=== PATIENT | male | born 1935 | race Caucasian/White ===

== ENCOUNTER 2020-08-22 23:17 | Emergency (ER) | payer MEDICARE, OTHER ==
[2020-08-22 23:24] VITALS: BP 163/103; PULSE 107
[2020-08-22] MEDS ORDERED: Sodium Chloride 0.9% 1,000 ML IV STA (23:34)
--- NOTE | 2020-08-23 00:35 | EDM.PDOC ---
ED HPI GENERAL MEDICAL PROBLEM - General Chief Complaint: Trauma Stated Complaint: [facility] Time Seen by Provider: 08/22/20 23:32 Source of Information: Reports: Patient History Limitations: Reports: No Limitations - History of Present Illness INITIAL COMMENTS - FREE TEXT/NARRATIVE: Mr. Acevedo is a very pleasant 85-year-old gentleman who is now brought to the ED by EMS after his neighbor found him on the bathroom floor around 23:00 tonight. The patient estimates that he fell around 17:00, stating that it was simply due to weakness. The patient has a skin tear to his left hand and right forearm, but denies having any pain. The patient denies having history of coronary artery disease, but states that he had a heart valve replaced in 2018 or 2019. He believes it is either porcine or bovine, but he does not recall which valve it was. He is on aspirin and Plavix, but no other anticoagulants. Here in the ED, the patient's initial BP is found to be elevated at 163/103, with tachycardia of 107 bpm. He is afebrile, saturating 95% on room air. The patient states that he has fallen about 4 times over the past 3 months, "ever since I got my hips and knees done". Otherwise, the patient denies having a recent fever, chills, sore throat, ear pain, nasal or sinus congestion, cough, dyspnea, chest pain, palpitations, nausea, vomiting, constipation, diarrhea, abdominal pain, urinary symptoms, recent weight gain or weight loss, recent bloody bowel movements or black bowel movements, recent joint aches, headaches, or rashes. The patient's PCP is Dr. Doe Arcos. His Footwear Sales Representative is Dr. Catarino Mansfield. His Orthopedic Surgeon is Dr. Anthony Lal. - Related Data Allergies Allergy/AdvReac Type Severity Reaction Status Date / Time Sulfa (Sulfonamide Allergy Severe Hives Verified 08/22/20 23:24 Antibiotics) Home Meds: Home Meds allopurinoL [Zyloprim] 1 tab PO QPM 06/14/14 [History] Ascorbic Acid [Vitamin C] 0 mg PO DAILY 06/17/14 [History] Aspirin [Halfprin] 81 mg PO DAILY 06/17/14 [History] Multivitamin [Multi-Vitamin Daily] 1 tab PO DAILY 06/17/14 [History] Calc/D3/Mag/Zn/Wen/G[place]ar/[place] [Calcium 600 MG Plus Vit D] 1 each PO DAILY 08/22/20 [History] Cholecalciferol (Vitamin D3) [Vitamin D3] 5,000 unit PO DAILY 08/22/20 [History] Clopidogrel [Plavix] 75 mg PO DAILY 08/22/20 [History] Doxazosin [Doxazosin Mesylate] 2 mg PO DAILY 08/22/20 [History] Furosemide [Lasix] 20 mg PO DAILY 08/22/20 [History] Metoprolol Tartrate 25 mg PO DAILY 08/22/20 [History] Vit A/Vit C/Vit E/Zinc/Copper [Preservision Areds Softgel] 1 each PO DAILY 08/22/20 [History] amLODIPine [Norvasc] 2.5 mg PO BEDTIME 08/22/20 [History] atorvaSTATin Calcium [Lipitor] 20 mg PO DAILY 08/22/20 [History] Past Medical History HEENT History: Reports: Impaired Vision Cardiovascular History: Reports: Heart Failure, High Cholesterol, Hypertension Gastrointestinal History: Reports: GERD, Hemorrhoids Musculoskeletal History: Reports: Osteoarthritis - Past Surgical History HEENT Surgical History: Reports: Adenoidectomy, Tonsillectomy Cardiovascular Surgical History: Reports: Valve Replacement (? which one, papa herrera is tissue, in 2018 or 2019) GI Surgical History: Reports: Colonoscopy (x 3 or 4), EGD Neurological Surgical History: Reports: C-Spine Musculoskeletal Surgical History: Reports: Hip Replacement (bilateral), Knee Replacement (bilateral) Social & Family History - Tobacco Use Tobacco Use Status *Q: Never Tobacco User - Caffeine Use Caffeine Use: Reports: Coffee - Alcohol Use Alcohol Use History: Yes Alcohol Use Frequency: Socially - Recreational Drug Use Recreational Drug Use: No - Living Situation & Occupation Living situation: Reports: , Alone Occupation: Retired Review of Systems - Review of Systems Review Of Systems: Comprehensive ROS is negative, except as noted in HPI. ED EXAM, GENERAL - Physical Exam Exam: See Below Exam Limited By: No Limitations General Appearance: Alert, WD/WN, No Apparent Distress Eye Exam: Bilateral Eye: EOMI, Normal Inspection Ears: Normal External Exam, Hearing Grossly Normal Nose: Normal Inspection Throat/Mouth: Normal Inspection, Normal Lips, Normal Voice, No Airway Compromise Head: Atraumatic, Normocephalic Neck: Normal Inspection, Full Range of Motion Respiratory/Chest: No Respiratory Distress, Lungs Clear, Normal Breath Sounds, No Accessory Muscle Use Cardiovascular: Normal Peripheral Pulses, Regular Rate, Rhythm, No Gallop, No JVD, No Murmur, No Rub Peripheral Pulses: 3+: Radial (L), Radial (R) GI/Abdominal: Normal Bowel Sounds, Soft, Non-Tender, No Organomegaly, No Distention, No Abnormal Bruit, No Mass Back Exam: Normal Inspection, Full Range of Motion, NT Extremities: Normal Range of Motion, Non-Tender, Normal Capillary Refill, Other (3+ pretibial pitting edema with hyperpigmentation consistent with chronic venous stasis changes, bilaterally. Approximately 4 cm x 2 cm bloody skin teat over the ulnar aspect of the patient's left hypothenar eminence, and an approximately quarter-sized skin tear on the patient's right forearm.) Neurological: Alert, Oriented, CN II-XII Intact, No Motor/Sensory Deficits, Confused (not the best historian, but the patient is oriented) Psychiatric: Normal Affect Skin Exam: Warm, Dry, Intact, Normal Color, No Rash #1 Interpretation EKG Date: 08/22/20 Time: 23:39 Rhythm: Other (Sinus tachycardia with 1:1 ventricular bigeminy) Rate (Beats/Min): 103 Mckenzie: Normal P-Wave: Present QRS: Normal ST-T: Normal QT: Prolonged (QTc 567 ms) Comparison: NA - No Prior EKG Course - Vital Signs Last Recorded V/S: Last Vital Signs Temp 37.3 C 08/22/20 23:19 Pulse 107 H 08/22/20 23:19 Resp 18 08/22/20 23:19 BP 163/103 H 08/22/20 23:19 Pulse Ox 95 08/22/20 23:19 - Orders/Labs/Meds Orders: Active Orders 24 hr Category Date Time Status EKG Documentation Completion [RC] ASDIRECTED Care 08/22/20 23:33 Active Chest 1V Frontal [CR] Stat Exams 08/23/20 00:32 Taken Head wo Cont [CT] Stat Exams 08/23/20 00:33 Taken Amiodarone In Dextrose,Iso-Osm [Nexterone in Dextrose Med 08/23/20 02:30 Activ e 360 MG/200 ML] 360 mg in 200 ml IV ASDIRECTED Heparin Sodium/D5W [Heparin 25,000 Units in D5W 500 ML] Med 08/23/20 02:15 Active 25,000 units in 500 ml IV TITRATE Sodium Chloride 0.9% [Normal Saline] 1,000 ml Med 08/22/20 23:34 Active IV NOW EKG 12 Lead [EK] Stat Ther 08/22/20 23:32 Ordered Medication Orders Sodium Chloride (Normal Saline) 1,000 mls @ 100 mls/hr IV NOW STA Stop: 08/23/20 09:33 Last Admin: 08/22/20 23:43 Dose: 100 mls/hr Documented by: KATI Heparin Sodium/Dextrose (Heparin 25,000 Units In D5w 500 Ml) 25,000 units in 500 mls @ 20 mls/hr IV TITRATE SANTI; Protocol Last Admin: 08/23/20 02:19 Dose: 1,000 units/hr, 20 mls/hr Documented by: KATI Cosigned by: DELORES Amiodarone HCl/Dextrose (Nexterone In Dextrose 360 Mg/200 Ml) 360 mg in 200 mls @ 33.333 mls/hr IV ASDIRECTED SANTI; Protocol Last Admin: 08/23/20 02:54 Dose: 33.333 mls/hr Documented by: KATI Labs: Laboratory Tests 08/22/20 08/22/20 08/22/20 Range/Units 23:29 23:29 23:29 WBC 10.23 H (4.23-9.07) K/mm3 RBC 4.34 L (4.63-6.08) M/mm3 Hgb 12.8 L (13.7-17.5) gm/dl Hct 39.9 L (40.1-51.0) % MCV 91.9 D (79.0-92.2) fl MCH 29.5 (25.7-32.2) pg MCHC 32.1 L (32.2-35.5) g/dl RDW Std Deviation 48.8 H (35.1-43.9) fL Plt Count 163 (163-337) K/mm3 MPV 10.2 (9.4-12.3) fl Neut % (Auto) 84.2 H (34.0-67.9) % Lymph % (Auto) 7.0 L (21.8-53.1) % [place] % (Auto) 8.3 (5.3-12.2) % Eos % (Auto) 0 L (0.8-7.0) Baso % (Auto) 0.2 (0.1-1.2) % Neut # (Auto) 8.61 H (1.78-5.38) K/mm3 Lymph # (Auto) 0.72 L (1.32-3.57) K/mm3 [place] # (Auto) 0.85 H (0.30-0.82) K/mm3 Eos # (Auto) 0.00 L (0.04-0.54) K/mm3 Baso # (Auto) 0.02 (0.01-0.08) K/mm3 Manual Slide Review Abnormal smear Sodium 141 (136-145) mEq/L Potassium 3.9 (3.5-5.1) mEq/L Chloride 104 (98-107) mEq/L Carbon Dioxide 22 (21-32) mEq/L Anion Gap 18.9 H (5-15) BUN 10 (7-18) mg/dL Creatinine 0.8 (0.7-1.3) mg/dL Est Cr Clr Drug Dosing 79.07 mL/min Estimated GFR (MDRD) > 60 (>60) mL/min BUN/Creatinine Ratio 12.5 L (14-18) Glucose 145 H (83-115) mg/dL Lactic Acid 1.6 (0.4-2.0) mmol/L Calcium 8.6 (8.5-10.1) mg/dL Magnesium (1.8-2.4) mg/dl Total Bilirubin 0.7 (0.2-1.0) mg/dL AST 28 (15-37) U/L ALT 24 (16-63) U/L Alkaline Phosphatase 105 (46-116) U/L Creatine Kinase (39-308) U/L Troponin I 1.328 H* (0.00-0.056) ng/mL Total Protein 6.7 (6.4-8.2) g/dl Albumin 3.6 (3.4-5.0) g/dl Globulin 3.1 gm/dL Albumin/Globulin Ratio 1.2 (1-2) SARS-CoV-2 RNA (SONIYA) (NEGATIVE) 08/22/20 08/22/20 08/23/20 Range/Units 23:29 23:29 00:42 WBC (4.23-9.07) K/mm3 RBC (4.63-6.08) M/mm3 Hgb (13.7-17.5) gm/dl Hct (40.1-51.0) % MCV (79.0-92.2) fl MCH (25.7-32.2) pg MCHC (32.2-35.5) g/dl RDW Std Deviation (35.1-43.9) fL Plt Count (163-337) K/mm3 MPV (9.4-12.3) fl Neut % (Auto) (34.0-67.9) % Lymph % (Auto) (21.8-53.1) % [place] % (Auto) (5.3-12.2) % Eos % (Auto) (0.8-7.0) Baso % (Auto) (0.1-1.2) % Neut # (Auto) (1.78-5.38) K/mm3 Lymph # (Auto) (1.32-3.57) K/mm3 [place] # (Auto) (0.30-0.82) K/mm3 Eos # (Auto) (0.04-0.54) K/mm3 Baso # (Auto) (0.01-0.08) K/mm3 Manual Slide Review Sodium (136-145) mEq/L Potassium (3.5-5.1) mEq/L Chloride (98-107) mEq/L Carbon Dioxide (21-32) mEq/L Anion Gap (5-15) BUN (7-18) mg/dL Creatinine (0.7-1.3) mg/dL Est Cr Clr Drug Dosing mL/min Estimated GFR (MDRD) (>60) mL/min BUN/Creatinine Ratio (14-18) Glucose (83-115) mg/dL Lactic Acid (0.4-2.0) mmol/L Calcium (8.5-10.1) mg/dL Magnesium 1.8 (1.8-2.4) mg/dl Total Bilirubin (0.2-1.0) mg/dL AST (15-37) U/L ALT (16-63) U/L Alkaline Phosphatase (46-116) U/L Creatine Kinase 311 H (39-308) U/L Troponin I (0.00-0.056) ng/mL Total Protein (6.4-8.2) g/dl Albumin (3.4-5.0) g/dl Globulin gm/dL Albumin/Globulin Ratio (1-2) SARS-CoV-2 RNA (SONIYA) Negative (NEGATIVE) Meds: Medications Generic Name Dose Route Start Last Admin Trade Name Saad PRN Reason Stop Dose Admin Sodium Chloride 1,000 mls @ 100 mls/hr 08/22/20 23:34 08/22/20 23:43 Normal Saline IV 08/23/20 09:33 100 mls/hr NOW STA Administration Heparin Sodium/Dextrose 25,000 units in 500 mls @ 20 mls/hr 08/23/20 02:15 08/23/20 02:19 Heparin 25,000 Units In D5w 500 Ml IV 1,000 units/hr TITRATE SANTI 20 mls/hr Administration Protocol 1,000 UNITS/HR Amiodarone HCl/Dextrose 360 mg in 200 mls @ 33.333 mls/hr 08/23/20 02:30 08/23/20 02:54 Nexterone In Dextrose 360 Mg/200 Ml IV 33.333 mls/hr ASDIRECTED SANTI Administration Protocol Discontinued Medications Generic Name Dose Route Start Last Admin Trade Name Saad PRN Reason Stop Dose Admin Aspirin 324 mg 08/23/20 02:01 08/23/20 02:14 Aspirin PO 08/23/20 02:02 324 mg ONETIME STA Administration Heparin Sodium (Porcine) 4,000 units 08/23/20 02:01 08/23/20 02:16 Heparin Sodium IVPUSH 08/23/20 02:02 4,000 units .BOLUS STA Administration Amiodarone HCl/Dextrose 150 mg 100 mls @ 600 mls/hr 08/23/20 02:45 08/23/20 02:49 / Premix IV 08/23/20 02:54 600 mls/hr NOW ONE Administration - Re-Assessments/Exams Free Text/Narrative Re-Assessment/Exam: 08/23/20 00:30 As above, the patient was found on his bathroom floor around 23:00 this evening, after falling around 17:00, he states, due to generalized weakness. He states that he has fallen about 4 times over the past 3 months. He has a couple of skin tears, but no other obvious injuries, and he denies having any pain. The patient's CBC is remarkable for mild leukocytosis of 10.23, and slight anemia with a H/H of 12.8/39.9, and the remainder of his CBC being unremarkable. His CMP is remarkable for an anion gap slightly elevated at 18.9, but with a bicarbonate normal at 22, and mild hyperglycemia of 145, with the remainder of his CMP being unremarkable. His lactic acid level is within normal limits at 1.6. His troponin is elevated at 1.328. There are no prior troponin's to compare. Based on the above, I have ordered a CPK (to rule out rhabdomyolysis, as the patient was on the bathroom floor for a prolonged period of time), along with a portable chest x-ray and swab for the SARS-CoV-2 virus (as the patient will likely require transfer to [place]). I have also ordered a CT of the head, given that the patient stated that he is fallen 4 times over the past 3 months - want to be certain that there are no intracranial injuries or obvious tumors that would preclude him from my starting a heparin drip. 08/23/20 01:57 The patient's CPK is mildly elevated at 311. His swab for the SARS-CoV-2 virus returned negative. Portable chest radiograph reviewed. There appears to be cardiomegaly, however, no pulmonary vascular congestion or pleural effusion to suggest decompensated CHF. No focal infiltrate. No pneumothorax. Aortosclerosis noted. Formal read per the Radiologist pending. CT of the head without contrast is read by Patrice as: 1. No acute intracranial abnormality. 2. Non-acute findings are described above. 08/23/20 02:23 From a call earlier this evening, I am aware that [facility] does not have any beds available. Case discussed with Kimberly at [facility] at 02:23. Case then discussed with Dr. Sandoval, Hospitalist at [facility], at 02:18. She accepted the patient for transfer to their facility. The patient will be transported by ground ambulance. I have pushed the portable chest x-ray and CT/head images to [facility]. 08/23/20 02:31 Notified by Alma Delia DOMINGO that the patient just had an 8-beat run of V-tach. I have therefore ordered an amiodarone gtt. Departure - Departure Time of Disposition: 02:25 Disposition: DC/Tfer to Acute Hospital 02 Condition: Good Clinical Impression: Generalized weakness, Non-STEMI (non-ST elevated myocardial infarction), Fall at home, Skin tear of hand without complication, Skin tear of forearm without complication, Non-sustained ventricular tachycardia - Discharge Information *PRESCRIPTION DRUG MONITORING PROGRAM REVIEWED*: Not Applicable *COPY OF PRESCRIPTION DRUG MONITORING REPORT IN PATIENT REKHA: Not Applicable Referrals: Doe Arcos MD [Primary Care Provider] - Catarino Mansfield MD [Ordering Only Provider] - Anthony Lal MD [Ordering Only Provider] - Forms: ED Department Discharge Sepsis Event Note (ED) - Evaluation Sepsis Screening Result: No Definite Risk - Focused Exam Vital Signs: Vital Signs Temp Pulse Resp BP Pulse Ox 08/22/20 23:19 37.3 C 107 H 18 163/103 H 95 - My Orders Last 24 Hours: My Active Orders 08/22/20 23:32 EKG 12 Lead [EK] Stat 08/22/20 23:33 EKG Documentation Completion [RC] ASDIRECTED 08/22/20 23:34 Sodium Chloride 0.9% [Normal Saline] 1,000 ml IV NOW 08/23/20 00:32 Chest 1V Frontal [CR] Stat 08/23/20 00:33 Head wo Cont [CT] Stat 08/23/20 02:15 Heparin Sodium/D5W [Heparin 25,000 Units in D5W 500 ML] 25,000 units in 500 ml IV TITRATE 08/23/20 02:30 Amiodarone In Dextrose,Iso-Osm [Nexterone in Dextrose 360 MG/200 ML] 360 mg in 200 ml IV ASDIRECTED - Assessment/Plan Last 24 Hours: My Active Orders 08/22/20 23:32 EKG 12 Lead [EK] Stat 08/22/20 23:33 EKG Documentation Completion [RC] ASDIRECTED 08/22/20 23:34 Sodium Chloride 0.9% [Normal Saline] 1,000 ml IV NOW 08/23/20 00:32 Chest 1V Frontal [CR] Stat 08/23/20 00:33 Head wo Cont [CT] Stat 08/23/20 02:15 Heparin Sodium/D5W [Heparin 25,000 Units in D5W 500 ML] 25,000 units in 500 ml IV TITRATE 08/23/20 02:30 Amiodarone In Dextrose,Iso-Osm [Nexterone in Dextrose 360 MG/200 ML] 360 mg in 200 ml IV ASDIRECTED
[2020-08-23] MEDS ORDERED: Aspirin 81 MG Tab.Chew PO STA (02:01)
[2020-08-23] MEDS ORDERED: Heparin Sodium 5,000 Units/ML Vial IVPUSH STA (02:01)
[2020-08-23] MEDS ORDERED: Heparin Sodium/D5W 25,000 UNITS/500 ML BAG IV SCH (02:15)
[2020-08-23] MEDS ORDERED: Amiodarone In Dextrose,Iso-Osm 150 MG in Premix Bag 1 BAG IV ONE ×2 (02:45)
--- NOTE | 2020-08-23 07:47 | CR ---
Chest: 2 views of the chest were obtained. Comparison: Prior chest x-ray of 06/14/14. Heart size appears within normal limits. Tortuous thoracic aorta is seen. Lungs show no acute parenchymal change. Bony structures are grossly intact. Impression: 1. Nothing acute is seen on frontal chest x-ray. Diagnostic code #2
--- NOTE | 2020-08-23 07:55 | CT ---
Head CT Technique: Multiple axial sections through the brain were obtained. Intravenous contrast not utilized. Reconstructed coronal and sagittal images were also obtained. Comparison: No prior intracranial imaging is available. Findings: Ventricles along with basal cisterns and sulci over the convexities are moderately prominent. Atrophy is also noted within the cerebellum. Minimal areas of diminished density are noted within portions of the periventricular white matter which are compatible with small vessel ischemic demyelination change. No evidence of intracranial hemorrhage. No midline shift or mass-effect is seen. Atherosclerotic change is seen within the carotid siphon and vertebral vessels. Bone window settings were reviewed. Visualized mastoid and paranasal sinuses show nothing acute. No acute calvarial abnormality is appreciated. Impression: 1. Scattered senescent change as noted above. 2. No acute intracranial abnormality is seen. Diagnostic code #2 I agree with preliminary report from [facility], finalized on 08/23/20, 2:50 AM ACCESS SPEC
== END 2020-08-23 03:15 ==
LOC: JD.ED 23:17
DX: S61.412A Laceration without foreign body of left hand, initial encounter (principal); S51.811A Laceration without foreign body of right forearm, initial encounter; I21.4 Non-ST elevation (NSTEMI) myocardial infarction; I47.2 Ventricular tachycardia; R79.89 Other specified abnormal findings of blood chemistry; D72.829 Elevated white blood cell count, unspecified; D64.9 Anemia, unspecified; I11.0 Hypertensive heart disease with heart failure; I50.9 Heart failure, unspecified; E78.00 Pure hypercholesterolemia, unspecified; M19.90 Unspecified osteoarthritis, unspecified site; Z88.2 Allergy status to sulfonamides; Z79.82 Long term (current) use of aspirin; Z79.02 Long term (current) use of antithrombotics/antiplatelets; Z79.899 Other long term (current) drug therapy; Z20.822 Contact with and (suspected) exposure to COVID-19; W18.30XA Fall on same level, unspecified, initial encounter; Y92.002 Bathroom of unspecified non-institutional (private) residence as the place of occurrence of the external cause
CPT/HCPCS: 36415; 70450; 70450-26; 71045; 71045-26; 80053; 82550; 83605; 83735; 84484; 85025; 93005; 93010; 96365; 96368; 99285; 99285-25; A9270-GY; J0282; J1644; J7030; U0002

== ENCOUNTER 2021-10-28 14:14 | Emergency (ER) | payer MEDICARE, OTHER ==
[2021-10-28] MEDS ORDERED: Metoprolol Succinate 25 MG Tab.ER PO ONE (19:26)
[2021-10-28 20:08] VITALS: BP 168/89; PULSE 94
== END 2021-10-28 20:00 ==
LOC: SUPCPDRO 14:14 → JD.ED 14:14
DX: I49.3 Ventricular premature depolarization (principal); J06.9 Acute upper respiratory infection, unspecified; R53.1 Weakness; E78.00 Pure hypercholesterolemia, unspecified; I11.0 Hypertensive heart disease with heart failure; I50.9 Heart failure, unspecified; K21.9 Gastro-esophageal reflux disease without esophagitis; M19.90 Unspecified osteoarthritis, unspecified site; Z88.2 Allergy status to sulfonamides; Z79.82 Long term (current) use of aspirin; Z79.899 Other long term (current) drug therapy; Z87.891 Personal history of nicotine dependence; Z79.02 Long term (current) use of antithrombotics/antiplatelets
CPT/HCPCS: 36415; 70450; 71045; 80053; 81003; 84484; 85025; 85610; 85730; 93005; 99285; A9270; 93010; 99283

== ENCOUNTER 2022-08-14 16:00 | Emergency (ER) | payer MEDICARE, OTHER ==
[2022-08-14 16:19] VITALS: BP 114/96; PULSE 75
== END 2022-08-14 18:40 | disposition home or self-care (01) ==
LOC: JD.ED 16:00
DX: R79.89 Other specified abnormal findings of blood chemistry (principal); E78.00 Pure hypercholesterolemia, unspecified; I11.0 Hypertensive heart disease with heart failure; I50.9 Heart failure, unspecified; K21.9 Gastro-esophageal reflux disease without esophagitis; Z88.2 Allergy status to sulfonamides; Z79.899 Other long term (current) drug therapy; Z79.02 Long term (current) use of antithrombotics/antiplatelets; Z79.82 Long term (current) use of aspirin
CPT/HCPCS: 36415; 80053; 82977; 83690; 85025; 99284

== ENCOUNTER 2025-03-13 20:56 | Emergency (ER) | payer MEDICARE, OTHER ==
[2025-03-13 22:32] LABS: BASOPHILS ABSOLUTE AUTO 0.0 K/mm3 (0.0-0.2); BASOPHILS PERCENT AUTO 0.2 % (0.0-1.0); EOSINOPHILS ABSOLUTE AUTO 0.0 K/mm3 (0.0-0.4); EOSINOPHILS PERCENT AUTO 0.2 % (0.0-6.0); IMMATURE GRAN ABSOLUTE AUTO 0.04 K/mm3 (0.00-0.05); IMMATURE GRAN PERCENT AUTO 0.3 % (0.0-0.4); LYMPHOCYTES ABSOLUTE AUTO 1.5 K/mm3 (1.0-4.8); LYMPHOCYTES PERCENT AUTO 12.6 % (24.0-44.0); MEAN PLATELET VOLUME 10.8 fl (9.4-12.4); MONOCYTES ABSOLUTE AUTO 1.5 K/mm3 (0.0-0.8); MONOCYTES PERCENT AUTO 12.4 % (0.0-8.0); NEUTROPHILS ABSOLUTE AUTO 9.0 K/mm3 (1.8-7.7); NEUTROPHILS PERCENT AUTO 74.3 % (41.0-71.0); NRBC ABSOLUTE 0.00 (0.00-0.02); NRBC PERCENT 0.0 % (0.0-0.2); PLATELET COUNT,PLT 193 K/mm3 (150-400); RED BLOOD CELL COUNT 4.45 M/mm3 (4.52-5.90); WHITE BLOOD CELL COUNT,WBC 12.09 K/mm3 (3.9-11.3)
[2025-03-13 22:55] VITALS: BP 154/69; PULSE 89
[2025-03-13 23:03] LABS: A/G RATIO 0.9 (1-2); ALANINE AMINOTRANSFERASE,ALT 19.0 U/L (16-63); ASPARTATE AMNIOTRANSFERASE,AST 18.0 U/L (15-37); BILIRUBIN TOTAL 0.6 mg/dL (0.2-1.0); BLOOD UREA NITROGEN,BUN 13.0 mg/dL (7-18); CARBON DIOXIDE,CO2 29.0 mEq/L (21-32); CHLORIDE,CL 103.0 mEq/L (98-107); CREATININE 0.8 mg/dL (0.7-1.3); EST CRCL DRUG DOSING (CG) 73.52 mL/min; ESTIMATED GFR 86.0 mL/min (>60); GLUCOSE RANDOM 123.0 mg/dL (70-99); POTASSIUM,K 3.6 mEq/L (3.5-5.1); PROTEIN TOTAL,TP 6.6 g/dl (6.4-8.2); SODIUM,NA 138.0 mEq/L (136-145)
[2025-03-14 00:28] LABS: APPEARANCE,URINE CLEAR (Clear); GLUCOSE,URINE NEGATIVE (Negative); OCCULT BLOOD,URINE NEGATIVE (Negative)
[2025-03-14 00:50] LABS: EPITHELIAL CELLS,URINE 0-5 /hpf (0-5)
== END 2025-03-14 04:12 | disposition home or self-care (01) ==
LOC: JD.ED 20:56
DX: R41.82 Altered mental status, unspecified (principal); I11.0 Hypertensive heart disease with heart failure; I50.9 Heart failure, unspecified; E78.00 Pure hypercholesterolemia, unspecified; M19.90 Unspecified osteoarthritis, unspecified site; Z88.2 Allergy status to sulfonamides; Z79.82 Long term (current) use of aspirin; Z79.899 Other long term (current) drug therapy
CPT/HCPCS: 36415; 70450; 70450-26; 71045; 71045-26; 80053; 81001; 85025; 99283; 99285

== ENCOUNTER 2025-04-16 16:35 | Emergency (ER) | payer MEDICARE, OTHER ==
[2025-04-16 18:07] LABS: BASOPHILS ABSOLUTE AUTO 0.1 K/mm3 (0.0-0.2); BASOPHILS PERCENT AUTO 0.6 % (0.0-1.0); EOSINOPHILS ABSOLUTE AUTO 0.1 K/mm3 (0.0-0.4); EOSINOPHILS PERCENT AUTO 1.2 % (0.0-6.0); IMMATURE GRAN ABSOLUTE AUTO 0.04 K/mm3 (0.00-0.05); IMMATURE GRAN PERCENT AUTO 0.5 % (0.0-0.4); LYMPHOCYTES ABSOLUTE AUTO 1.9 K/mm3 (1.0-4.8); LYMPHOCYTES PERCENT AUTO 22.8 % (24.0-44.0); MEAN PLATELET VOLUME 10.0 fl (9.4-12.4); MONOCYTES ABSOLUTE AUTO 1.1 K/mm3 (0.0-0.8); MONOCYTES PERCENT AUTO 13.0 % (0.0-8.0); NEUTROPHILS ABSOLUTE AUTO 5.2 K/mm3 (1.8-7.7); NEUTROPHILS PERCENT AUTO 61.9 % (41.0-71.0); NRBC ABSOLUTE 0.00 (0.00-0.02); NRBC PERCENT 0.0 % (0.0-0.2); PLATELET COUNT,PLT 192 K/mm3 (150-400); RED BLOOD CELL COUNT 4.50 M/mm3 (4.52-5.90); WHITE BLOOD CELL COUNT,WBC 8.36 K/mm3 (3.9-11.3)
[2025-04-16 18:38] LABS: A/G RATIO 0.9 (1-2); ALANINE AMINOTRANSFERASE,ALT 20 U/L (16-63); ASPARTATE AMNIOTRANSFERASE,AST 15 U/L (15-37); BILIRUBIN TOTAL 0.5 mg/dL (0.2-1.0); BLOOD UREA NITROGEN,BUN 15 mg/dL (7-18); CARBON DIOXIDE,CO2 30 mEq/L (21-32); CHLORIDE,CL 104 mEq/L (98-107); CREATININE 0.9 mg/dL (0.7-1.3); ESTIMATED GFR 83 mL/min (>60); GLUCOSE RANDOM 110 mg/dL (70-99); POTASSIUM,K 3.9 mEq/L (3.5-5.1); PROTEIN TOTAL,TP 6.4 g/dl (6.4-8.2); SODIUM,NA 141 mEq/L (136-145)
[2025-04-16 19:23] LABS: APPEARANCE,URINE CLEAR (Clear); GLUCOSE,URINE NEGATIVE (Negative); OCCULT BLOOD,URINE TRACE-INTACT (Negative)
[2025-04-16 19:43] LABS: EPITHELIAL CELLS,URINE 0-5 /hpf (0-5)
[2025-04-16 20:12] VITALS: BP 147/49; PULSE 72
== END 2025-04-16 20:30 | disposition home or self-care (01) ==
LOC: JD.ED 16:35
DX: F03.90 Unspecified dementia, unspecified severity, without behavioral disturbance, psychotic disturbance, mood disturbance, and anxiety (principal); I11.0 Hypertensive heart disease with heart failure; I50.9 Heart failure, unspecified; E78.00 Pure hypercholesterolemia, unspecified; K21.9 Gastro-esophageal reflux disease without esophagitis; Z88.2 Allergy status to sulfonamides; Z79.82 Long term (current) use of aspirin; Z79.899 Other long term (current) drug therapy
CPT/HCPCS: 36415; 70450; 70450-26; 71045; 71045-26; 80053; 81001; 85025; 86140; 99283; 99285